=== PATIENT | male | born 1980 | race Caucasian/White ===

== ENCOUNTER 2017-12-02 13:49 | Outpatient (CLI) | payer BC | END 2017-12-02 13:50 | disposition home or self-care (01) | LOC: BICCT 13:49 | PROVIDERS: ATTEND Family Medicine | DX: M12.571 Traumatic arthropathy, right ankle and foot (principal); S82.64XA Nondisplaced fracture of lateral malleolus of right fibula, initial encounter for closed fracture; M19.071 Primary osteoarthritis, right ankle and foot ==